=== PATIENT | male | born 2000 | race Caucasian/White ===

== ENCOUNTER 2019-05-09 22:30 | Emergency (ER) | payer OTHER ==
[~2019-05-09] VITALS: Ht 193 cm; Wt 75.3 kg
[2019-05-09 22:34] VITALS: Ht 193 cm; Wt 75.3 kg
[2019-05-10 01:05] VITALS: BP 124/58
== END 2019-05-10 01:05 | disposition home or self-care (01) ==
LOC: ED 22:30
DX: S16.1XXA Strain of muscle, fascia and tendon at neck level, initial encounter (principal); J45.909 Unspecified asthma, uncomplicated; V43.52XA Car driver injured in collision with other type car in traffic accident, initial encounter; Y93.I9 Activity, other involving external motion; Y92.413 State road as the place of occurrence of the external cause; Y99.8 Other external cause status